=== PATIENT | male | born 1990 | race Two or more races ===

== ENCOUNTER 2021-02-12 15:08 | Emergency (ER) | payer MEDICAID ==
[~2021-02-12] VITALS: Ht 180.3 cm; Wt 101.4 kg
[2021-02-12] MEDS ORDERED: PENI500T2 PO (15:53)
[2021-02-12] MEDS ORDERED: IBUP-1985 PO (15:53)
[2021-02-12 15:56] VITALS: BP 158/93
== END 2021-02-12 16:11 | disposition home or self-care (01) ==
LOC: ER 15:09
DX: K04.7 Periapical abscess without sinus (principal); Z88.0 Allergy status to penicillin; Z88.8 Allergy status to other drugs, medicaments and biological substances
CPT/HCPCS: 99283